=== PATIENT | male | born 1980 | race Caucasian/White ===

== ENCOUNTER 2021-04-05 17:25 | Emergency (ER) | payer OTHER ==
[~2021-04-05] VITALS: Ht 177.8 cm; Wt 83.9 kg
[2021-04-05 17:34] VITALS: BP 136/75
--- NOTE | 2021-04-05 17:50 | NUR ---
BIB SELF C/O RIGHT HAND PAIN/ BLISTER S/P INJURY X 2 DAYS.
[2021-04-05] MEDS ORDERED: NAPR-54 PO (18:26)
[2021-04-05] MEDS ORDERED: CEPH-588 PO (18:26)
[2021-04-05] MEDS: KETOROLAC 30 MG/ML VIAL IM ONE (18:29)
[2021-04-05] MEDS: BACITRACIN OINT 500 UNITS/GM PKT TP ONE (18:33)
--- NOTE | 2021-04-05 18:44 | NUR ---
Patient discharged with v/s stable. Written and verbal after care instructions given and explained. Patient alert, oriented and verbalized understanding of instructions. Ambulatory with steady gait. All questions addressed prior to discharge. ID band removed. Patient advised to follow up with PMD. Rx of KEFLEX & NAOROSYN given. Patient educated on indication of medication including possible reaction and side effects. Opportunity to ask questions provided and answered.
[2021-04-05 18:45] VITALS: BP 136/75
== END 2021-04-05 18:44 | disposition home or self-care (01) ==
LOC: MED 17:25
DX: S60.221A Contusion of right hand, initial encounter (principal); L03.113 Cellulitis of right upper limb; X58.XXXA Exposure to other specified factors, initial encounter; Y93.89 Activity, other specified; Y92.89 Other specified places as the place of occurrence of the external cause; Y99.8 Other external cause status
CPT/HCPCS: 96372; 99283; J1885